=== PATIENT | male | born 1965 | race Caucasian/White ===

== ENCOUNTER 2023-07-16 09:17 | Emergency (ER) | payer BC ==
[2023-07-16] MEDS ORDERED: Prochlorperazine 10 MG/2 ML VIAL ONE (10:30)
[2023-07-16] MEDS ORDERED: Caffeine/Sodium Benzoate 0.5 GM in Sodium Chloride 0.9% 1,000 ML IVPB SCH (10:45)
== END 2023-07-16 12:39 | disposition home or self-care (01) ==
LOC: CSHERS 09:17
DX: G97.1 Other reaction to spinal and lumbar puncture (principal)
CPT/HCPCS: 96365; J0706; J0780; J7050

== ENCOUNTER 2024-02-07 16:10 | Outpatient (CLI) | payer BC | END 2024-02-07 16:11 | disposition home or self-care (01) | LOC: CSHRAD 16:10 | PROVIDERS: ATTEND Physician Assistant | DX: R05.3 Chronic cough (principal) | CPT/HCPCS: 71046 ==